=== PATIENT | female | born 1955 ===

== ENCOUNTER 2020-06-10 09:04 | Outpatient (CLI) | payer OTHER | END 2020-06-10 09:09 | disposition home or self-care (01) | LOC: MAMO-SONO 09:04 | PROVIDERS: ATTEND General Practice | DX: Z12.31 Encounter for screening mammogram for malignant neoplasm of breast (principal); N64.4 Mastodynia ==

== ENCOUNTER 2021-08-18 08:08 | Outpatient (CLI) | payer OTHER | END 2021-08-18 08:22 | disposition home or self-care (01) | LOC: MAMO-SONO 08:08 | PROVIDERS: ATTEND Obstetrics & Gynecology | DX: N60.09 Solitary cyst of unspecified breast (principal) ==

== ENCOUNTER 2021-08-18 14:14 | Outpatient (CLI) | payer OTHER | END 2021-08-18 14:15 | disposition home or self-care (01) | LOC: NUCLEAR 14:14 | PROVIDERS: ATTEND Obstetrics & Gynecology | DX: M81.0 Age-related osteoporosis without current pathological fracture (principal); M85.9 Disorder of bone density and structure, unspecified ==

== ENCOUNTER 2022-04-08 07:45 | Outpatient (CLI) | payer OTHER | END 2022-04-08 07:52 | disposition home or self-care (01) | LOC: RAD 07:45 | PROVIDERS: ATTEND Family Medicine | DX: M54.17 Radiculopathy, lumbosacral region (principal) ==

== ENCOUNTER 2023-01-04 13:59 | Outpatient (CLI) | payer OTHER | END 2023-01-04 14:10 | disposition home or self-care (01) | LOC: MAMO-SONO 13:59 | PROVIDERS: ATTEND Family Medicine | DX: Z12.31 Encounter for screening mammogram for malignant neoplasm of breast (principal) ==